=== PATIENT | female | born 1960 | race Caucasian/White ===

== ENCOUNTER 2024-08-29 21:48 | Emergency (ER) | payer MEDICARE, MEDICAID | END 2024-08-29 22:07 | disposition home or self-care (01) | LOC: CSHERS 21:48 | DX: S01.01XA Laceration without foreign body of scalp, initial encounter (principal); E11.22 Type 2 diabetes mellitus with diabetic chronic kidney disease; N18.6 End stage renal disease; I48.91 Unspecified atrial fibrillation; Z79.01 Long term (current) use of anticoagulants; X58.XXXA Exposure to other specified factors, initial encounter | CPT/HCPCS: 99282 ==